=== PATIENT | female | born 1960 | race Caucasian/White ===

== ENCOUNTER → 2016-10-09 | Outpatient (CLI) | payer BC ==
[~2016-10-09] MED LIST: DIOVAN HCT 11 TABLE1 PO; HYDROCODON-ACE1 EAC7 PO; IBUPROFEN400 MG PO; LEVOTHYROXINE75 MCG PO; RABEPRAZOLE SOD20 MG PO; SYNTHROID50 MCG PO
== END | disposition home or self-care (01) ==
LOC: CDC 12:28
DX: R94.31 Abnormal electrocardiogram [ECG] [EKG] (principal); K46.9 Unspecified abdominal hernia without obstruction or gangrene
CPT/HCPCS: 93000

== ENCOUNTER 2016-10-16 06:39 | Day surgery (SDC) | payer BC ==
[~2016-10-16] VITALS: Ht 170.2 cm; Wt 88.4 kg
[~2016-10-16 06:39] MED LIST changes: +MULTI VITAMIN1 EACH PO; +VITAMIN B-123000 MCG SL
[2016-10-16 07:06] VITALS: BP 117/72
[2016-10-16 12:05] VITALS: BP 125/74
[2016-10-16 13:03] VITALS: BP 124/68
== END 2016-10-16 13:30 | disposition home or self-care (01) ==
LOC: SDC
PROC: 0WUF0JZ Supplement Abdominal Wall with Synthetic Substitute, Open Approach (ICD-10-PCS; principal; 2016-10-16)
DX: K43.9 Ventral hernia without obstruction or gangrene (principal); Z98.84 Bariatric surgery status; I10 Essential (primary) hypertension; E03.9 Hypothyroidism, unspecified; K21.9 Gastro-esophageal reflux disease without esophagitis
CPT/HCPCS: C1781; J0330; J0690; J1100; J1170; J1644; J2250; J2405; J2710; J3010; S0020